=== PATIENT | female | born 1985 | race Caucasian/White ===

== ENCOUNTER 2017-05-21 12:27 | Emergency (ER) | payer MEDICAID ==
[~2017-05-21] VITALS: Ht 170.2 cm; Wt 88.0 kg
[2017-05-21 12:28] VITALS: BP 111/75
== END 2017-05-21 13:54 | disposition home or self-care (01) ==
LOC: ED 13:53
DX: J20.9 Acute bronchitis, unspecified (principal)
CPT/HCPCS: 71020; 93005

== ENCOUNTER 2019-02-17 01:56 | Emergency (ER) | payer MEDICAID ==
[~2019-02-17] VITALS: Ht 170.2 cm; Wt 72.7 kg
[2019-02-17 02:01] VITALS: BP 121/85
--- NOTE | 2019-02-17 02:36 | NUR ---
ASSESSMENT MADE. CHART UP FOR MD TO SEE.
[2019-02-17] MEDS ORDERED: HYDROcodone/APAP 5/325 TABLET ONE (02:42)
[2019-02-17] MEDS ORDERED: IBUPROFEN 600 MG TABLET ONE (02:42)
[2019-02-17] MEDS ORDERED: CLINDAMYCIN 300 MG CAPSULE ONE (02:42)
--- NOTE | 2019-02-17 02:47 | NUR ---
PATIENT MEDICATED FOR PAIN. ANTIBIOTIC GIVEN.
--- NOTE | 2019-02-17 02:58 | NUR ---
PATIENT DISCHARGED WITH PRESCRIPTION AND INSTRUCTION. VERBALIZED UNDERSTANDING.
[2019-02-17] MEDS ORDERED: IBUPROFEN 600 MG TABLET PO ONE (03:00)
[2019-02-17] MEDS ORDERED: HYDROcodone/APAP 5/325 TABLET PO ONE (03:00)
[2019-02-17] MEDS ORDERED: CLINDAMYCIN 300 MG CAPSULE PO ONE (03:00)
== END 2019-02-17 03:00 | disposition home or self-care (01) ==
LOC: ED 02:57
DX: K02.9 Dental caries, unspecified (principal)
CPT/HCPCS: 99284

== ENCOUNTER 2020-07-29 07:20 | Emergency (ER) | payer MEDICAID ==
[~2020-07-29] VITALS: Ht 170.2 cm; Wt 55.0 kg
--- NOTE | 2020-07-29 07:27 | NUR ---
PT BIB EMS FOR SOB. NO CP, NO COUGH. PT SYMPTOMS STARTED YESTERDAY AND FELT THAT SHE COULDNT TAKE DEEP ENOUGH BREATHS OR GET AIR IN LUNGS, FELT TIGHT. EMS STATES PT WAS DIMISHED THROUGHOUT, TACHIPNIC, 90% RA. PT WAS GIVE 2 NEBS, 125 SOLUMEDROL IN ROUTE, 20 G IV RW. PT FEELING BETTER UPON ARRIVAL. 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 PT NOT IS RESP DISTRESS, RR 20. RA SAT 98%
[2020-07-29] MEDS ORDERED: LORazepam 1MG TABLET PO ONE (08:00)
[2020-07-29] MEDS ORDERED: LORazepam 1MG TABLET ONE (08:00)
--- NOTE | 2020-07-29 08:10 | NUR ---
MEDICATED FOR ANXIETY. PT FELLING ANXIOUS W COUGH ATTACKS.
--- NOTE | 2020-07-29 08:54 | NUR ---
PT AMBULATED TO BATHROOM
[2020-07-29] MEDS ORDERED: SODIUM CHLORIDE 0.9% 1,000ML IVBOLUS ONE (09:00)
[2020-07-29] MEDS ORDERED: ONDANSETRON 2MG/ML, 2ML IVPush ONE (09:00)
[2020-07-29] MEDS ORDERED: ONDANSETRON 2MG/ML, 2ML ONE (09:01)
[2020-07-29 09:21] LABS: MICROSCOPIC NOT IND
--- NOTE | 2020-07-29 09:26 | NUR ---
MEDICATED PER ORDERS, FLUIDS INFUSING. UA SENT
[2020-07-29 09:43] LABS: BASOPHILS # (AUTO) 0.01 x10^3/uL (0-0.1); BASOPHILS % (AUTO) 0 % (0-1); EOSINOPHILS # (AUTO) 0.08 x10^3/uL (0-0.4); EOSINOPHILS % (AUTO) 1 % (1-7); LYMPHOCYTES # (AUTO) 0.51 x10^3/uL (1-3.4); LYMPHOCYTES % (AUTO) 7 % (22-44); MD NO; MEAN CORPUSCULAR HEMOGLOBIN 27.6 pg (27.0-34.8); MEAN CORPUSCULAR HGB CONC 32.6 g/dL (32.4-35.8); MEAN CORPUSCULAR VOLUME 84.8 fL (80-100); MEAN PLATELET VOLUME 7.5 fL (7.4-10.4); MONOCYTES # (AUTO) 0.07 x10^3/uL (0.2-0.8); MONOCYTES % (AUTO) 1 % (2-9); NEUTROPHILS # (AUTO) 6.58 x10^3/uL (1.8-6.8); NEUTROPHILS % (AUTO) 91 % (42-75); PLATELET COUNT 198 x10^3/uL (130-400); RED CELL DISTRIBUTION WIDTH 12.3 % (9.6-15.2)
[2020-07-29 09:55] LABS: ALANINE AMINOTRANSFERASE 23 U/L (12-78); ALBUMIN 2.8 g/dL (3.4-5.0); ANION GAP 7 mmol/L (5-15); CALCIUM 7.8 mg/dL (8.5-10.1); CHLORIDE 115 mmol/L (98-107); CREATININE 0.44 mg/dL (0.55-1.02)
[2020-07-29 10:00] LABS: ALKALINE PHOSPHATASE 91 U/L (45-117); BILIRUBIN,TOTAL 0.6 mg/dL (0.2-1.0); TOTAL PROTEIN 5.7 g/dL (6.4-8.2)
[2020-07-29] MEDS ORDERED: POTASSIUM CHLORIDE 20 MEQ TAB.ER.PRT PO ONE (10:30)
[2020-07-29] MEDS ORDERED: POTASSIUM CHLORIDE 20 MEQ TAB.ER.PRT ONE (10:35)
[2020-07-29 10:51] VITALS: BP 124/65
--- NOTE | 2020-07-29 10:51 | NUR ---
REPORT TO ZACKARY
== END 2020-07-29 11:15 | disposition home or self-care (01) ==
LOC: ED 07:50
DX: R06.00 Dyspnea, unspecified (principal); R11.2 Nausea with vomiting, unspecified; F41.1 Generalized anxiety disorder; J98.01 Acute bronchospasm; R00.0 Tachycardia, unspecified
CPT/HCPCS: 36415; 71045; 80053; 81003; 83690; 84703; 85025; 93005; 96361; 96374; 99285; J2405; J7030